=== PATIENT | female | born 1970 | race Hispanic/Latino ===

== ENCOUNTER 2018-12-18 10:23 | Outpatient (CLI) | payer OTHER ==
--- NOTE | 2018-12-18 15:29 | XRay Report ---
Bilateral knees, 2 views INDICATION: BILATERAL KNEE PAIN. COMPARISON: None. IMPRESSION: No acute osseous or soft tissue abnormality. Moderate to severe osteoarthritis is elina ntified throughout both knees. Moderate bilateral joint effusions are also identified. Signer Name: Pablo Solano Jr, MD Signed: 12/18/2018 3:24 PM Workstation Name: [id number]
== END 2018-12-18 10:24 | disposition home or self-care (01) ==
LOC: XRAY 10:23
PROVIDERS: ATTEND Internal Medicine
DX: M17.0 Bilateral primary osteoarthritis of knee (principal); D64.9 Anemia, unspecified; F32.9 Major depressive disorder, single episode, unspecified